=== PATIENT | male | born 1975 | race Caucasian/White ===

== ENCOUNTER → 2016-06-20 | Outpatient (REF) | payer OTHER ==
[~2016-06-20] MED LIST: /ADVA50050 IN; /AUGM875TA OR; /QUET25TA OR; ALBUTEROL INH; CLAR5CHW OR; COUM1TAB17 PO; COUMADIN PO; EFFE150C OR; EFFE37.527 PO; EFFE75CA75 PO; LOVE0.6I2 SC; MAGN500T2 OR; PROA1AER IN; QUET5TAB PO; VENTAER IN; [UNRECOGNIZED DRUG - OTHER]
[2016-06-20 12:57] LABS: INR 3.77
== END ==
LOC: M LAB REF 12:22
PROVIDERS: ATTEND Physician Assistant Medical
DX: Z51.81 Encounter for therapeutic drug level monitoring (principal); Z79.01 Long term (current) use of anticoagulants

== ENCOUNTER → 2016-06-23 | Outpatient (REF) | payer OTHER ==
[2016-06-23 10:24] LABS: INR 1.63
== END ==
LOC: M LAB REF 09:55
PROVIDERS: ATTEND Physician Assistant Medical
DX: Z51.81 Encounter for therapeutic drug level monitoring (principal); Z79.01 Long term (current) use of anticoagulants

== ENCOUNTER → 2016-07-04 | Outpatient (REF) | payer OTHER ==
[2016-07-04 18:39] LABS: INR 1.84
== END ==
LOC: M LAB REF 16:16
PROVIDERS: ATTEND Physician Assistant Medical
DX: Z51.81 Encounter for therapeutic drug level monitoring (principal); Z79.01 Long term (current) use of anticoagulants

== ENCOUNTER → 2016-07-11 | Outpatient (REF) | payer OTHER ==
[2016-07-11 12:44] LABS: INR 2.97
== END ==
LOC: M LAB REF 12:00
PROVIDERS: ATTEND Physician Assistant Medical
DX: Z51.81 Encounter for therapeutic drug level monitoring (principal); Z79.01 Long term (current) use of anticoagulants

== ENCOUNTER → 2016-07-18 | Outpatient (REF) | payer OTHER ==
[2016-07-18 12:46] LABS: INR 2.81
== END ==
LOC: M LAB REF 11:59
PROVIDERS: ATTEND Physician Assistant Medical
DX: Z51.81 Encounter for therapeutic drug level monitoring (principal); Z79.01 Long term (current) use of anticoagulants

== ENCOUNTER → 2016-07-25 | Outpatient (REF) | payer OTHER ==
[2016-07-25 14:29] LABS: INR 2.56
== END ==
LOC: M LAB REF 13:05
PROVIDERS: ATTEND Physician Assistant Medical
DX: Z51.81 Encounter for therapeutic drug level monitoring (principal); Z79.01 Long term (current) use of anticoagulants

== ENCOUNTER → 2016-08-01 | Outpatient (REF) | payer OTHER ==
[2016-08-01 13:22] LABS: INR 2.43
== END ==
LOC: M LAB REF 12:37
PROVIDERS: ATTEND Physician Assistant Medical
DX: Z51.81 Encounter for therapeutic drug level monitoring (principal); Z79.01 Long term (current) use of anticoagulants

== ENCOUNTER → 2016-08-08 | Outpatient (REF) | payer OTHER ==
[2016-08-08 15:11] LABS: INR 2.3
== END ==
LOC: M LAB REF 14:50
PROVIDERS: ATTEND Surgery
DX: Z51.81 Encounter for therapeutic drug level monitoring (principal); Z79.01 Long term (current) use of anticoagulants

== ENCOUNTER → 2016-08-15 | Outpatient (REF) | payer OTHER ==
[2016-08-15 13:03] LABS: INR 2.48
== END ==
LOC: M LAB REF 12:15
PROVIDERS: ATTEND Physician Assistant Medical
DX: Z51.81 Encounter for therapeutic drug level monitoring (principal); Z79.01 Long term (current) use of anticoagulants

== ENCOUNTER → 2016-09-12 | Outpatient (REF) | payer OTHER ==
[2016-09-12 13:40] LABS: INR 2.78
== END ==
LOC: M LAB REF 11:55
PROVIDERS: ATTEND Physician Assistant Medical
DX: Z51.81 Encounter for therapeutic drug level monitoring (principal); Z79.01 Long term (current) use of anticoagulants

== ENCOUNTER → 2016-09-26 | Outpatient (REF) | payer OTHER ==
[2016-09-26 10:44] LABS: INR 2.58
== END ==
LOC: M LAB REF 10:29
PROVIDERS: ATTEND Surgery
DX: Z51.81 Encounter for therapeutic drug level monitoring (principal); Z79.01 Long term (current) use of anticoagulants

== ENCOUNTER → 2016-10-24 | Outpatient (REF) | payer OTHER ==
[2016-10-24 13:51] LABS: INR 2.35
== END ==
LOC: M LAB REF 13:02
PROVIDERS: ATTEND Physician Assistant Medical
DX: Z51.81 Encounter for therapeutic drug level monitoring (principal); Z79.01 Long term (current) use of anticoagulants

== ENCOUNTER → 2016-11-21 | Outpatient (REF) | payer OTHER ==
[2016-11-21 18:09] LABS: INR 2.86
== END ==
LOC: M LAB REF 16:39
PROVIDERS: ATTEND Physician Assistant Medical
DX: Z51.81 Encounter for therapeutic drug level monitoring (principal); Z79.01 Long term (current) use of anticoagulants